=== PATIENT | female | born 1980 | race Hispanic/Latino ===

== ENCOUNTER 2020-12-29 10:41 | Emergency (ER) | payer SELFPAY ==
[~2020-12-29] VITALS: Ht 172.7 cm; Wt 86.2 kg
== END 2020-12-29 16:49 | disposition home or self-care (01) ==
LOC: ER 11:50
DX: S52.124A Nondisplaced fracture of head of right radius, initial encounter for closed fracture (principal); S00.83XA Contusion of other part of head, initial encounter; W00.0XXA Fall on same level due to ice and snow, initial encounter; Y93.01 Activity, walking, marching and hiking; Y92.008 Other place in unspecified non-institutional (private) residence as the place of occurrence of the external cause
CPT/HCPCS: 70450; 70486; 72125; 99284